=== PATIENT | male | born 1965 | race Caucasian/White ===

== ENCOUNTER 2018-10-15 12:13 | Emergency (ER) | payer BC, OTHER ==
[~2018-10-15] VITALS: Ht 170.2 cm; Wt 83.9 kg
[~2018-10-15 12:13] MED LIST: VALS320T2 PO
--- NOTE | 2018-10-15 12:51 | NUR ---
JOHNIE WEBSTER AT BEDSIDE FOR MSE.
[2018-10-15] MEDS ORDERED: BENZONATATE 100 MG CAPSULE PO ONE (13:00)
[2018-10-15] MEDS ORDERED: ALBUTEROL SULFATE 2.5 MG/3 ML NEBU NEB ONE (13:00)
[2018-10-15] MEDS ORDERED: BENZONATATE 100 MG CAPSULE ONE (13:05)
[2018-10-15] MEDS ORDERED: ALBUTEROL SULFATE 2.5 MG/3 ML NEBU ONE (13:08)
--- NOTE | 2018-10-15 13:15 | NUR ---
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
--- NOTE | 2018-10-15 14:32 | NUR ---
Patient discharged to home in stable conditon. Written and verbal after care instructions given. Patient verbalizes understanding of instructions. ALL BELONGINGS W/ PT. PT SELF-AMBULATED W/O DIFFICUTLY.
[2018-10-15 14:33] VITALS: BP 146/87
== END 2018-10-15 14:33 | disposition home or self-care (01) ==
LOC: ER 12:15
DX: J20.9 Acute bronchitis, unspecified (principal); J02.9 Acute pharyngitis, unspecified; I10 Essential (primary) hypertension; E11.9 Type 2 diabetes mellitus without complications; Z90.89 Acquired absence of other organs; Z79.899 Other long term (current) drug therapy
CPT/HCPCS: 36415; 70360; 86403; 87070; A4663

== ENCOUNTER 2021-05-16 09:39 | Emergency (ER) | payer BC ==
[~2021-05-16] VITALS: Ht 170.2 cm; Wt 83.9 kg
[2021-05-16] MEDS ORDERED: CLINDAMYCIN PHOSPHATE IV 600 MG in IV DEXTROSE 5% 100 ML IV ONE (12:00)
[2021-05-16] MEDS ORDERED: DEXAMETHASONE SOD PHOSPHATE 4 MG INJ IV ONE (12:00)
[2021-05-16] MEDS ORDERED: IV NORMAL SALINE 1000 ML BAG IV ONE (12:00)
[2021-05-16] MEDS ORDERED: DEXAMETHASONE SOD PHOSPHATE 10 MG INJ ONE (12:10)
[2021-05-16 12:35] LABS: HEMATOCRIT 44.2 % (36.7-47.1); MEAN CORPUSCULAR HEMOGLOBIN 30.1 uug (23.8-33.4); MEAN CORPUSCULAR VOLUME 87.7 fL (73.0-96.2); PLATELET COUNT (AUTO) 163 K/uL (152-348)
[2021-05-16] MEDS ORDERED: IOHEXOL 300MG/ML 100 ML INFUS..BTL ONE (13:10)
[2021-05-16] MEDS ORDERED: SWABABLE VALVE TRANSFER SET EA MC ONE (13:10)
[2021-05-16] MEDS ORDERED: IV NORMAL SALINE 250 ML IV ONE (13:10)
[2021-05-16 13:11] LABS: CREATININE 0.9 mg/dL (0.6-1.3)
[2021-05-16 13:22] LABS: BILIRUBIN,DIRECT 0.1 mg/dL (0.0-0.2); BILIRUBIN,TOTAL 0.6 mg/dL (0.2-1.0); TOTAL PROTEIN, SERUM 7.7 g/dL (6.4-8.2)
--- NOTE | 2021-05-16 14:00 | NUR ---
back from CT. NAD RA IV intact monitored accordingly
[2021-05-16] MEDS ORDERED: CLIN300C12 PO (15:09)
[2021-05-16] MEDS ORDERED: HYDR-3972 PO (15:09)
--- NOTE | 2021-05-16 15:45 | NUR ---
Patient discharged to home in stable condition. Written and verbal after care instructions given. Patient verbalizes understanding of instructions. Stressed follow up or return to ER for worsening s/s.
[2021-05-16 15:46] VITALS: BP 145/85
== END 2021-05-16 15:48 | disposition home or self-care (01) ==
LOC: ER 09:41
DX: I88.8 Other nonspecific lymphadenitis (principal); J98.11 Atelectasis; I10 Essential (primary) hypertension; E11.9 Type 2 diabetes mellitus without complications; Z91.19 Patient's noncompliance with other medical treatment and regimen
CPT/HCPCS: 36415; 70491; 71045; 80048; 80076; 83605; 84145; 84484; 85025; 87040 ×2; 93005; 96365; 96366; 96375; 99285; J1100; J3490; J7060; Q9967; 70030-TC; A4663; J7030; J7050

== ENCOUNTER 2023-08-07 16:51 | Emergency (ER) | payer BC, OTHER ==
[~2023-08-07] VITALS: Ht 170.2 cm; Wt 83.9 kg
[~2023-08-07 16:51] MED LIST changes: +CLIN300C12 PO; +HYDR-3972 PO
[2023-08-07] MEDS ORDERED: CIPR500T5 PO (17:58)
[2023-08-07] MEDS ORDERED: OFLO5DRO5 RIGHT EAR (17:58)
[2023-08-07] MEDS ORDERED: ACET1TAB23 PO (17:58)
[2023-08-07 18:11] VITALS: BP 144/80; O2SAT 99
== END 2023-08-07 18:11 | disposition home or self-care (01) ==
LOC: ER 16:52
DX: H60.91 Unspecified otitis externa, right ear (principal); E10.9 Type 1 diabetes mellitus without complications; I10 Essential (primary) hypertension; Z90.49 Acquired absence of other specified parts of digestive tract; Z79.899 Other long term (current) drug therapy; Z60.2 Problems related to living alone
CPT/HCPCS: A4606; A4663